=== PATIENT | female | born 1980 | race American Indian/Alaskan Native ===

== ENCOUNTER 2021-06-03 19:28 | Emergency (ER) | payer SELFPAY ==
[2021-06-03 20:57] VITALS: BP 102/61
--- NOTE | 2021-06-03 22:08 | XRay Report ---
CHEST 1 VIEW 06/03/2021 9:00 PM INDICATION / CLINICAL INFORMATION: Cough, dyspnea. COMPARISON: None available. FINDINGS: SUPPORT DEVICES: None. HEART / MEDIASTINUM: No significant abnormality. LUNGS / PLEURA: No significant pulmonary or pleural abnormality. No pneumothorax. ADDITIONAL FINDINGS: No significant additional findings. IMPRESSION: 1. No acute findings. Signer Name: Abhishek Lacy DO Signed: 06/03/2021 10:03 PM Workstation Name: [id number]
--- NOTE | 2021-06-03 22:44 | Emergency Department Report ---
- General Chief Complaint: Fever Stated Complaint: COVID19 SYMPTOMS Source: patient Mode of arrival: Ambulatory Limitations: No Limitations - History of Present Illness Initial Comments: Patient is a 40-year-old -[place] female with a history of asthma presents to the ED with complaint of acute onset persistent diffuse body aches and pains, nasal and sinus congestion, persistent dry cough, intermittent fever of up to 100 F, lack of appetite and generalized weakness and headache for the last 4 days. Patient states that her children who attend school initially started having these symptoms and is suspected to have been exposed to individuals who had tested positive for COVID-19 viral infection. Patient suspects that her children have also contracted the same as everyone else has been infected at home and experiencing similar symptoms. Patient however states that none of her children or herself have been tested for COVID-19 viral infection, and that none at home has been vaccinated against COVID-19 viral infection. Patient states that her symptoms have worsened in the last 12 hours despite taking [id number] pain medications. Patient denies dizziness, syncope, chest pain, shortness of breath, nausea, vomiting, diarrhea, abdominal pain, dysuria, urinary frequency and urgency, vaginal bleeding or vaginal discharge. MD Complaint: cough, rhinorrhea, nasal congestion, sinus pain -: Sudden, days(s) (4) Severity: severe Severity scale (0 -10): 7 Quality: sharp, aching Consistency: constant Improves With: NSAID, OTC cold medicine Worsens With: nothing Context: sick contacts Associated Symptoms: denies other symptoms, fever, chills, myalgias, headache, rhinorrhea, nasal congestion, cough. denies: diaphoresis, sore throat, chest pain, shortness of breath, abdominal pain, nausea, vomiting, diarrhea, dysuria, rash, confusion, right sweats, weight loss, epistaxis, hoarseness, ear pain Treatments Prior to Arrival: "cold medicine" - Related Data Previous Rx's Medication Instructions Recorded Last Taken Type Ascorbic Acid [Vitamin C] 1,000 mg PO Q12H #60 tablet 06/03/21 Unknown Rx Ibuprofen [Motrin] 600 mg PO Q8H PRN #30 tablet 06/03/21 Unknown Rx Zinc Acetate [Galzin 50mg CAP] 50 mg PO DAILY #30 capsule 06/03/21 Unknown Rx Allergies Allergy/AdvReac Type Severity Reaction Status Date / Time morphine Allergy Swelling Verified 06/03/21 20:52 Morpholine Analogues Allergy Swelling Verified 06/03/21 20:52 ED Review of Systems ROS: Stated complaint: COVID19 SYMPTOMS Other details as noted in HPI Constitutional: chills, fever, malaise Eyes: denies: eye pain, eye discharge, vision change ENT: congestion. denies: ear pain, throat pain Respiratory: cough. denies: shortness of breath, wheezing Cardiovascular: denies: chest pain, palpitations Endocrine: no symptoms reported Gastrointestinal: denies: abdominal pain, nausea, vomiting, diarrhea Genitourinary: denies: urgency, dysuria, discharge Musculoskeletal: denies: back pain, joint swelling, arthralgia Skin: denies: rash, lesions Neurological: denies: headache, weakness, paresthesias Psychiatric: denies: anxiety, depression Hematological/Lymphatic: denies: easy bleeding, easy bruising ED Past Medical Hx - Past Medical History Previous Medical History?: Yes Hx Asthma: Yes - Surgical History Past Surgical History?: Yes Additional Surgical History: hernia repair - Medications Home Medications: Home Medications Medication Instructions Recorded Confirmed Last Taken Type Ascorbic Acid [Vitamin C] 1,000 mg PO Q12H #60 tablet 06/03/21 Unknown Rx Ibuprofen [Motrin] 600 mg PO Q8H PRN #30 tablet 06/03/21 Unknown Rx Zinc Acetate [Galzin 50mg CAP] 50 mg PO DAILY #30 capsule 06/03/21 Unknown Rx ED Physical Exam - General Limitations: No Limitations General appearance: alert, in no apparent distress - Head Head exam: Present: atraumatic, normocephalic, normal inspection - Eye Eye exam: Present: normal appearance, PERRL, EOMI Pupils: Present: normal accommodation - ENT ENT exam: Present: mucous membranes moist, TM's normal bilaterally, normal external ear exam, other (Grossly congested nasal passages) - Neck Neck exam: Present: normal inspection, full ROM - Respiratory Respiratory exam: Present: normal lung sounds bilaterally. Absent: respiratory distress, wheezes, rales, stridor, chest wall tenderness, accessory muscle use, decreased breath sounds, prolonged expiratory - Cardiovascular Cardiovascular Exam: Present: regular rate, normal rhythm, normal heart sounds. Absent: systolic murmur, diastolic murmur, rubs, gallop - GI/Abdominal GI/Abdominal exam: Present: soft, normal bowel sounds. Absent: tenderness, guarding, rebound, hyperactive bowel sounds, hypoactive bowel sounds - Extremities Exam Extremities exam: Present: normal inspection, full ROM, normal capillary refill - Back Exam Back exam: Present: normal inspection, full ROM. Absent: tenderness, CVA tenderness (R), CVA tenderness (L), muscle spasm, vertebral tenderness - Neurological Exam Neurological exam: Present: alert, oriented X3, CN II-XII intact, normal gait, reflexes normal - Psychiatric Psychiatric exam: Present: normal affect, normal mood - Skin Skin exam: Present: warm, dry, intact, normal color. Absent: rash ED Course Vital Signs 06/03/21 20:49 Temperature 98.4 F Pulse Rate 77 Respiratory 18 Rate Blood Pressure 102/61 O2 Sat by Pulse 96 Oximetry ED Medical Decision Making - Radiology Data Radiology results: report reviewed, image reviewed [facility] [address] [place] [address] XRay Report Signed Patient: LUCIUS DODSON MR#: [id number] : 1980 Acct:[id number] Age/Sex: 40 / F ADM Date: 06/03/21 Loc: ED Attending Dr: Ordering Physician: RORO MALLOY Date of Service: 06/03/21 Procedure(s): XR chest 1V ap Accession Number(s): [id number] cc: RORO MALLOY Fluoro Time In Minutes: CHEST 1 VIEW 06/03/2021 9:00 PM INDICATION / CLINICAL INFORMATION: Cough, dyspnea. COMPARISON: None available. FINDINGS: SUPPORT DEVICES: None. HEART / MEDIASTINUM: No significant abnormality. LUNGS / PLEURA: No significant pulmonary or pleural abnormality. No pneumothorax. ADDITIONAL FINDINGS: No significant additional findings. IMPRESSION: 1. No acute findings. Signer Name: Abhishek Lacy DO Signed: 06/03/2021 10:03 PM Workstation Name: [id number] Transcribed By: DIANA Dictated By: ABHISHEK LACY DO Electronically Authenticated By: ABHISHEK LACY DO Signed Date/Time: 06/03/212202 DD/ 02 TD/TT: - Medical Decision Making This is a 40-year-old -[place] female with a history of asthma presents to the ED with complaint of acute onset persistent diffuse body aches and pains, nasal and sinus congestion, persistent dry cough, intermittent fever of up to 100 F, lack of appetite and generalized weakness and headache for the last 4 days. Patient states that her children who attend school initially started having these symptoms and is suspected to have been exposed to individuals who had tested positive for COVID-19 viral infection. Patient suspects that her children have also contracted the same as everyone else has been infected at home and experiencing similar symptoms. Patient however states that none of her children or herself have been tested for COVID-19 viral infection, and that none at home has been vaccinated against COVID-19 viral infection. Patient states that her symptoms have worsened in the last 12 hours despite taking bqwx-[id number] pain medications. In the ED, patient is alert and oriented x3 and is not in any distress. Patient is hemodynamically stable with normal vital signs. Chest x-ray showed no acute cardiopulmonary abnormalities or pneumonitis. On reevaluation, patient is alert, ambulatory in the ED, with oxygen saturation of 96 to 99% in room air. Patient was discharged home and advised to take medications and to ensure that she gets tested for COVID-19 viral infection in any of the outpatient facilities. Patient was advised that if her test is positive for COVID-19 viral infection she needs to self quarantine at home for 10 days, otherwise follow-up with her primary care physician in 5 to 7 days for reevaluation or return to the ED immediately if symptoms get worse - Differential Diagnosis URI; Covid-19; pneumonia; bronchitis; Critical care attestation.: If time is entered above; I have spent that time in minutes in the direct care of this critically ill patient, excluding procedure time. ED Disposition Clinical Impression: Acute upper respiratory infection, Suspected 2019-nCoV infection Acute bronchitis Qualifiers: Bronchitis organism: other organism Qualified Code(s): J20.8 - Acute bronchitis due to other specified organisms Disposition: 01 HOME / SELF CARE / HOMELESS Is pt being admited?: No Does the pt Need Aspirin: No Condition: Stable Instructions: Acute Bronchitis (ED), Upper Respiratory Infection, Adult, Kfqz-[id number], Acute Bronchitis, Adult, Wzak-[id number], Cough, Adult, Ogqq-[id number] Additional Instructions: Chest x-ray showed no acute cardiopulmonary abnormalities or pneumonitis. Therefore take medications with food, drink plenty of fluids and follow-up with your primary care physician in 7 to 10 days. Return to the ED immediately if symptoms get worse. It is advisable to get outpatient Covid-19 test in any of the outpatient facilities. Prescriptions: Zinc Acetate [Galzin 50mg CAP] 50 mg PO DAILY #30 capsule Ibuprofen [Motrin] 600 mg PO Q8H PRN #30 tablet PRN Reason: Pain Ascorbic Acid [Vitamin C] 1,000 mg PO Q12H #60 tablet Referrals: [facility] [Provider Group] - 7-10 days Time of Disposition: 22:48 Print Language: THAI
== END 2021-06-03 23:50 | disposition home or self-care (01) ==
LOC: ED 19:28
DX: J06.9 Acute upper respiratory infection, unspecified (principal); J20.8 Acute bronchitis due to other specified organisms; J45.909 Unspecified asthma, uncomplicated; Z20.822 Contact with and (suspected) exposure to COVID-19; Z88.8 Allergy status to other drugs, medicaments and biological substances; Z79.899 Other long term (current) drug therapy; Z98.890 Other specified postprocedural states
CPT/HCPCS: 71045